=== PATIENT | female | born 1990 | race African-American/Black ===

== ENCOUNTER 2021-05-14 22:17 | Emergency (ER) | payer OTHER ==
[~2021-05-14] VITALS: Ht 165.1 cm; Wt 122.5 kg
[2021-05-14 22:38] VITALS: BP 178/82
[2021-05-14] MEDS ORDERED: ACETAMINOPHEN (22:45)
[2021-05-15] MEDS ORDERED: ACYCLOVIR 400400 MG PO (01:33)
== END 2021-05-15 01:42 | disposition home or self-care (01) ==
LOC: ER 22:17
PROVIDERS: Emergency Medicine
DX: N76.0 Acute vaginitis (principal); Z88.0 Allergy status to penicillin; Z88.8 Allergy status to other drugs, medicaments and biological substances